=== PATIENT | male | born 1995 | race Caucasian/White ===

== ENCOUNTER 2017-05-11 23:08 | Emergency (ER) | payer SELFPAY ==
[2017-05-12 00:03] VITALS: BP 123/83; PULSE 87; RESP 16; TEMP 98.3; O2SAT 99
--- NOTE | 2017-05-12 01:46 | ED PDOC ---
HPI: General Adult Time Seen by Provider: 05/12/17 00:31 Chief Complaint (Nursing): Finger,Hand,&Wrist History Per: Patient Additional Complaint(s): Pt. states earlier today he fell down and injured his R hand. States 2 years ago he sustained fracture to the same hand which required surgery a year later. Denies numbness, tingling, other injury. Past Medical History Reviewed: Historical Data, Nursing Documentation, Vital Signs Vital Signs: Last Vital Signs Temp 98.3 F 05/12/17 00:01 Pulse 87 05/12/17 00:01 Resp 16 05/12/17 00:01 BP 123/83 05/12/17 00:01 Pulse Ox 99 05/12/17 01:53 - Family History Family History: States: No Known Family Hx - Home Medications Home Medications: Ambulatory Orders Medication Instructions Recorded Naproxen [Naprosyn] 500 mg PO BID PRN #30 tab 05/12/17 - Allergies Allergies/Adverse Reactions: Allergies Allergy/AdvReac Type Severity Reaction Status Date / Time No Known Allergies Allergy Verified 05/12/17 00:03 Review of Systems ROS Statement: Except As Marked, All Systems Reviewed And Found Negative Musculoskeletal: Positive for: Hand Pain Physical Exam - Physical Exam Appears: Positive for: Well, Non-toxic, No Acute Distress Skin: Positive for: Normal Color, Warm. Negative for: Rash Pulses-Radial (L): 2+ Pulses-Radial (R): 2+ Extremity: Positive for: Other (R hand with dorsal swelling and tenderness without deformity; cap refill < 2 seconds of all fingers on R hand) - ECG O2 Sat by Pulse Oximetry: 99 - Radiology X-Ray: Interpreted by Me (R hand x-ray) X-Ray Interpretation: Other (non-displaced fx on mid 5th MCP ) - Progress ED Course And Treament: Pt. offered pain meds in ED but refused. R hand immobilized in ulnar gutter by reproduction technician. Disposition - Clinical Impression Clinical Impression: Hand fracture - Patient ED Disposition Is Patient to be Admitted: No - Disposition Referrals: Angelito Veras [Outside] Abigail Aldrich MD [Staff Provider] - Disposition: Routine/Home Disposition Time: 01:52 Condition: STABLE Additional Instructions: Follow up with Dr. Aldrich for further evaluation. Prescriptions: Naproxen [Naprosyn] 500 mg PO BID PRN #30 tab PRN Reason: Pain Instructions: Hand Fracture (ED), Splint Care (ED) Forms: [facility] ([place]) Print Language: IRISH
--- NOTE | 2017-05-12 09:34 | RAD ---
PROCEDURE: Right Hand Radiographs. HISTORY: trauma COMPARISON: None. FINDINGS: BONES: There is a boxer's fracture of the 5th metacarpal bone minimal palmar angulation of the distal fracture fragment. No dislocation. Local soft tissue edema is identified. No destructive bony lesion associated or seen throughout the remaining bones of the right hand. JOINTS: As above. SOFT TISSUES: As above. OTHER FINDINGS: None. IMPRESSION: Boxer's fracture right 5th metacarpal bone.
== END 2017-05-12 02:23 | disposition home or self-care (01) ==
LOC: H.ER 23:08
DX: S69.91XA Unspecified injury of right wrist, hand and finger(s), initial encounter (principal); W19.XXXA Unspecified fall, initial encounter; Y92.89 Other specified places as the place of occurrence of the external cause